=== PATIENT | female | born 1990 | race Caucasian/White ===

== ENCOUNTER → 2016-11-26 | Outpatient (CLI) | payer OTHER ==
[~2016-11-26] MED LIST: PREN-142 PO
== END ==
LOC: CARD 10:30
PROVIDERS: ATTEND Internal Medicine Interventional Cardiology
DX: I10 Essential (primary) hypertension (principal); R01.1 Cardiac murmur, unspecified

== ENCOUNTER → 2017-01-18 | Outpatient (CLI) | payer MEDICAID ==
[2017-01-18 10:49] LABS: PROTEIN/CREATININE RATIO 1.1
== END ==
LOC: LABNPT 10:25
PROVIDERS: ATTEND Obstetrics & Gynecology
DX: O14.03 Mild to moderate pre-eclampsia, third trimester (principal); Z3A.00 Weeks of gestation of pregnancy not specified
CPT/HCPCS: 82570; 84156

== ENCOUNTER → 2017-01-21 | Outpatient (CLI) | payer MEDICAID ==
[~2017-01-21] MED LIST changes: +CALC-697 PO; +DOCU100C37 PO; +IBUP-1780 PO; +METH250T PO; +OXYC-465 PO
[2017-01-21 11:37] LABS: PROTEIN/CREATININE RATIO 0.21
== END ==
LOC: LABNPT 11:16
PROVIDERS: ATTEND Obstetrics & Gynecology
DX: O28.8 Other abnormal findings on antenatal screening of mother (principal); Z3A.00 Weeks of gestation of pregnancy not specified
CPT/HCPCS: 82570; 84156

== ENCOUNTER 2017-01-24 10:00 | Outpatient (CLI) | payer MEDICAID ==
[~2017-01-24] VITALS: Ht 162.6 cm; Wt 83.0 kg
[~2017-01-24 10:00] MED LIST changes: -CALC-697 PO; -DOCU100C37 PO; -IBUP-1780 PO; -METH250T PO; -OXYC-465 PO
[2017-01-24 10:02] VITALS: BP 120/74
[2017-01-24] MEDS ORDERED: METH250T PO (10:10)
[2017-01-24] MEDS ORDERED: CALC-697 PO (10:11)
[2017-01-24 10:32] VITALS: BP 118/71
[2017-01-24] MEDS ORDERED: D5 LR IV SOLUTION 1,000 ML IV SCH (11:00)
[2017-01-24 11:02] VITALS: BP 118/65
[2017-01-24 11:32] VITALS: BP 119/67
[2017-01-24 12:15] VITALS: BP 129/81
[2017-01-24 12:40] VITALS: BP 129/81
--- NOTE | 2017-01-25 09:21 | Physician Query-Final Dx ---
ENRIQUE NEAL 01/25/17 0921: Clinic Account Progress/Dx Physician Query: Please give diagnosis Date of Service Jan 24, 2017 at 10:00 ANNIE CAMPBELL MD 02/07/17 0820: Clinic Account Progress/Dx DIAGNOSIS: Diagnosis false labor ENRIQUE NEAL Jan 25, 2017 09:21 ANNIE CAMPBELL MD Feb 07, 2017 08:20
[2017-01-28] MEDS ORDERED: OXYC-465 PO (07:43)
[2017-01-28] MEDS ORDERED: DOCU100C37 PO (07:43)
[2017-01-28] MEDS ORDERED: IBUP-1780 PO (07:43)
== END 2017-01-24 12:40 | disposition home or self-care (01) ==
LOC: WSo 10:00 → LDRP 10:01 → WSo 12:40
PROVIDERS: ATTEND Obstetrics & Gynecology
DX: O47.03 False labor before 37 completed weeks of gestation, third trimester (principal); Z3A.36 36 weeks gestation of pregnancy
CPT/HCPCS: 96360; 99214

== ENCOUNTER 2017-01-25 20:20 | Inpatient (IN) | payer MEDICAID ==
[~2017-01-25] VITALS: Ht 165.1 cm; Wt 83.9 kg
[~2017-01-25 20:20] MED LIST changes: -DOCU100C37 PO; -IBUP-1780 PO; -OXYC-465 PO
[2017-01-25 21:00] VITALS: BP 119/74
[2017-01-25 21:03] LABS: BASOPHILS % (AUTO) 0 % (0-10); EOSINOPHILS # (AUTO) 0.2 10^3/uL (0.0-0.3); EOSINOPHILS % (AUTO) 2 % (0-10); LYMPHOCYTES # (AUTO) 2.8 X 10^3 (1.0-4.0); LYMPHOCYTES % (AUTO) 20 % (12-44); MEAN CORPUSCULAR HEMOGLOBIN 31 PG (25-34); MEAN CORPUSCULAR HGB CONC 34 G/DL (32-36); MEAN CORPUSCULAR VOLUME 90 FL (80-99); MEAN PLATELET VOLUME 9.8 FL (7.4-10.4); MONOCYTES # (AUTO) 0.8 X 10^3 (0.0-1.0); MONOCYTES % (AUTO) 6 % (0-12); NEUTROPHILS # (AUTO) 10.2 X 10^3 (1.8-7.8); NEUTROPHILS % (AUTO) 72 % (42-75); PLATELET COUNT 351 10^3/uL (130-400); RED BLOOD COUNT 3.77 10^6/uL (4.35-5.85); RED CELL DISTRIBUTION WIDTH 13.9 % (10.0-14.5); WHITE BLOOD COUNT 14.1 10^3/uL (4.3-11.0)
[2017-01-25 21:56] VITALS: BP 122/59
[2017-01-25 21:59] LABS: ALANINE AMINOTRANSFERASE < 6 U/L (0-55); ALBUMIN 3.1 GM/DL (3.2-4.5); ANION GAP 10 MMOL/L (5-14); ASPARTATE AMINO TRANSFERASE 8 U/L (5-34); BILIRUBIN,TOTAL 0.2 MG/DL (0.1-1.0); BLOOD UREA NITROGEN 12 MG/DL (7-18); BUN/CREATININE RATIO 21; CALCIUM 8.9 MG/DL (8.5-10.1); CARBON DIOXIDE 19 MMOL/L (21-32); CHLORIDE 108 MMOL/L (98-107); CREATININE SERUM 0.57 MG/DL (0.60-1.30); GFR ESTIMATED > 60; GLUCOSE 85 MG/DL (70-105); LACTATE DEHYDROGENASE 147 U/L (125-220); POTASSIUM 4.1 MMOL/L (3.6-5.0); SODIUM 137 MMOL/L (135-145); URIC ACID 4.3 MG/DL (2.6-7.2)
[2017-01-25 22:58] LABS: BAND NEUTROPHILS 4 %; BASOPHILS % (MANUAL) 0 %; EOSINOPHILS % (MANUAL) 1 %; LYMPHOCYTES % (MANUAL) 24 %; NEUTROPHILS % (MANUAL) 68 %
[2017-01-25 23:53] VITALS: BP 107/51
[2017-01-26 04:20] VITALS: BP 113/63
--- NOTE | 2017-01-26 08:55 | History & Physical ---
History and Physical Date Seen by Provider: Jan 26, 2017 Time Seen by Provider: 08:49 this patient is a 26-year-old white female with an EDC of 9 and 17 putting her at 36-5/7 weeks' gestation on the date of admission. This dates she is 36-6/7 weeks' gestation. Her is complicated by pre-existing hypertension for which she was taking labetalol. Term her medications been changed to Aldomet with good effect. Her blood pressures until recently had been in the 100 teens over 60s to 70s. Her blood pressures crept up now to the 130s over high 80s. Urine protein creatinine ratio 1 week ago was at 0.21. Repeat yesterday was at greater than 0.4. She is admitted for observation last evening with plan for observation until 37 weeks gestation and thenproceed with delivery. on this date patient denies headache, she denies shortness of breath, dysuria denies nausea vomiting. She denies rupture membranes or bleeding. She does feel baby moving and feels a rare contraction. Allergies are listed above Medications are Aldomet 250 mg twice a day and vitamins Medical social and surgical histories are per the antepartum record Lab work is as follows Laboratory Tests Test 01/25/17 20:50 Range/Units White Blood Count 14.1 H 4.3-11.0 10^3/uL Red Blood Count 3.77 L 4.35-5.85 10^6/uL Hemoglobin 11.5 11.5-16.0 G/DL Hematocrit 34 L 35-52 % Mean Corpuscular Volume 90 80-99 FL Mean Corpuscular Hemoglobin 31 25-34 PG Mean Corpuscular Hemoglobin Concent 34 32-36 G/DL Red Cell Distribution Width 13.9 10.0-14.5 % Platelet Count 351 130-400 10^3/uL Mean Platelet Volume 9.8 7.4-10.4 FL Neutrophils (%) (Auto) 72 42-75 % Lymphocytes (%) (Auto) 20 12-44 % Monocytes (%) (Auto) 6 0-12 % Eosinophils (%) (Auto) 2 0-10 % Basophils (%) (Auto) 0 0-10 % Neutrophils # (Auto) 10.2 H 1.8-7.8 X 10^3 Lymphocytes # (Auto) 2.8 1.0-4.0 X 10^3 Monocytes # (Auto) 0.8 0.0-1.0 X 10^3 Eosinophils # (Auto) 0.2 0.0-0.3 10^3/uL Basophils # (Auto) 0.0 0.0-0.1 10^3/uL Neutrophils % (Manual) 68 % Lymphocytes % (Manual) 24 % Monocytes % (Manual) 3 % Eosinophils % (Manual) 1 % Basophils % (Manual) 0 % Band Neutrophils 4 % Blood Morphology Comment NORMAL Sodium Level 137 135-145 MMOL/L Potassium Level 4.1 3.6-5.0 MMOL/L Chloride Level 108 H 98-107 MMOL/L Carbon Dioxide Level 19 L 21-32 MMOL/L Anion Gap 10 5-14 MMOL/L Blood Urea Nitrogen 12 7-18 MG/DL Creatinine 0.57 L 0.60-1.30 MG/DL Estimat Glomerular Filtration Rate > 60 BUN/Creatinine Ratio 21 Glucose Level 85 70-105 MG/DL Uric Acid 4.3 2.6-7.2 MG/DL Calcium Level 8.9 8.5-10.1 MG/DL Total Bilirubin 0.2 0.1-1.0 MG/DL Aspartate Amino Transf (AST/SGOT) 8 5-34 U/L Alanine Aminotransferase (ALT/SGPT) < 6 0-55 U/L Alkaline Phosphatase 149 H 40-136 U/L Lactate Dehydrogenase 147 125-220 U/L Total Protein 6.0 L 6.4-8.2 GM/DL Albumin 3.1 L 3.2-4.5 GM/DL liver enzymes and LDH and platelets are normal hemoglobin is normal HEENT exam is normal Neck is supple no lymphadenopathy no thyromegaly Abdomen is gravid soft nontender nondistended Extremities show clubbing cyanosis. There is no Homans sign. Pelvic exam is deferred monitor shows normal heart rate pattern with rare contraction on NST Assessment and plan patient is currently 36-6/7 weeks' gestation with preeclampsia. Lantus for observation until 37 weeks is obtained and then induce labor with Pitocin. Should severe preeclampsia manifested then delivery would expedited. Anticipation is for induction of labor with the resulting vaginal delivery however plans in preparations are in would be in place for if needed. This plan has been explained to the patient with its inherent risks and potential complications. Patient understands and accepts those risks. 36-5/7 weeks' gestation with preeclampsia Allergies and Home Medications Allergies Coded Allergies: acetaminophen (Verified Allergy, Unknown, 10/10/16) hydrocodone (Verified Allergy, Unknown, 10/10/16) promethazine (Verified Allergy, Unknown, 10/10/16) Home Medications Calcium Carbonate/Vitamin D3 1 Each Tablet, 1 EACH PO DAILY, (Reported) Methyldopa 250 Mg Tablet, 250 MG PO BID, (Reported) Vit No.124/Iron/FA 1 Each Tablet, 1 EACH PO DAILY, (Reported) Clinical Quality Measures DVT/VTE Risk/Contraindication: Risk Factor Score Per Nursin RFS Level Per Nursing on Admit: 2=Moderate ANNIE CAMPBELL MD Jan 26, 2017 8:55 am
[2017-01-26] MEDS ORDERED: CATHETER FLUSH 10 ML SYR IV PRN (09:15)
[2017-01-26] MEDS: D5 LR IV SOLUTION 1,000 ML IV SCH ×2 (10:00→22:30)
[2017-01-26 10:05] VITALS: BP 120/74
[2017-01-26 13:20] VITALS: BP 106/65
[2017-01-26 17:58] VITALS: BP 122/75
[2017-01-26 20:00] VITALS: BP 129/67
[2017-01-27] VITALS (54 sets, daily range): BP systolic 104–143; BP diastolic 58–88
[2017-01-27] MEDS: D5 LR IV SOLUTION 1,000 ML IV SCH ×3 (05:50→19:36)
[2017-01-27] MEDS ORDERED: AMPICILLIN 2000 MG INJECTION (IM/IV) ONE (06:00)
[2017-01-27] MEDS ORDERED: NS (IVPB) 50 ML ONE (06:01)
[2017-01-27] MEDS ORDERED: OXYTOCIN/NORMAL SALINE 500 ML IV SCH ×2 (06:05→15:00)
[2017-01-27] MEDS ORDERED: AMPICILLIN INJECTION 2,000 MG in NS (IVPB) 50 ML IV ONE (06:15)
--- NOTE | 2017-01-27 08:13 | Progress Note-Standard ---
Standard Progress Note Progress Notes/Assess & Plan Date Seen by Provider: Jan 27, 2017 Time Seen by Provider: 08:09 Progress/Assessment & Plan patient does complain of some discomfort with contractions now. She has been started on Pitocin at approximately 6-630 a.m. or induction of labor due to preeclampsia. Blood pressures have been satisfactory on her Aldomet. Lab work was normal on admission except for the urine protein creatinine ratio that was 0.4. Patient denied headache. Denies rupture membranes or bleeding. Vital Signs Date Time Temp Pulse Resp B/P (MAP) Pulse Ox O2 Delivery O2 Flow Rate FiO2 01/27/17 06:55 97.7 61 18 116/70 01/27/17 06:40 97.7 71 18 108/61 01/27/17 06:25 66 18 108/64 01/27/17 06:14 97.8 70 18 116/60 01/27/17 06:10 70 18 116/60 01/27/17 05:50 98.1 72 20 116/68 01/27/17 00:36 78 18 121/61 01/27/17 00:00 97.8 78 18 121/61 Room Air 01/26/17 20:00 97.8 57 18 129/67 01/26/17 17:58 97.3 66 22 122/75 01/26/17 13:20 98.0 68 22 106/65 01/26/17 10:05 97.5 73 18 120/74 Vital signs are stable. Patient afebrile. Abdomen is gravid soft nontender nondistended Extremities show clubbing cyanosis. There is fairly notable pretibial pitting edema. Pelvic exam shows a cervix 2 cm dilated 70 percent effaced vertex presentation membranes were intact amniotomy was performed with release of a fairly notable amount of clear amniotic fluid. Presentation vertex at the -1 to -2 station assessment and plan 37 weeks gestation with an protein creatinine ratio over 0.4 in a patient with pre-existing hypertension currently on Aldomet. The hypertension and superimposed with eclampsia. Patient is undergoing Pitocin induction of labor now. Anticipation is for vaginal delivery. patient has been started on ampicillin for GBS prophylaxis due to a positive GBS culture. ANNIE CAMPBELL MD Jan 27, 2017 8:13 am
[2017-01-27] MEDS ORDERED: SUFENTA 0.6MCG/ML BUPIVA 0.125 100 ML ONE (08:23)
[2017-01-27] MEDS ORDERED: fentaNYL INJECTION 100 MCG/2 ML AMP ONE (09:14)
[2017-01-27] MEDS ORDERED: BUPIVACAINE 0.25% 30 ML (SENSORCAINE) VIAL ONE (09:14)
[2017-01-27] MEDS ORDERED: LACTATED RINGERS 1,000 ML IV ONE ×2 (09:42)
[2017-01-27] MEDS ORDERED: EPIDURAL (SUFENTA 0.6MCG/ML BUPIVA 0.125%) 100 ML BAG EPI PRN (09:45)
[2017-01-27] MEDS ORDERED: ONDANSETRON 4 MG/2 ML (SDV) Z0FRAN IV PRN (09:45)
[2017-01-27] MEDS ORDERED: NALOXONE 0.4 MG/ML 1 ML (NARCAN) VIAL IV PRN (09:45)
[2017-01-27] MEDS: AMPICILLIN INJECTION 1,000 MG in NS (IVPB) 50 ML IV SCH ×3 (09:51→20:19)
[2017-01-27] MEDS ORDERED: LIDOCAINE/EPI 2% 1:200,00 (XYLOCAINE) 10 ML VIAL ONE (14:39)
[2017-01-27] MEDS ORDERED: TETANUS,DIPTH,PERTUSS P/F (BOOSTRIX) 0.5 ML VIAL IM ONE (15:00)
[2017-01-27] MEDS ORDERED: BENZOCAINE/MENTHOL (DERMOPLAST) 56 ML CAN TP PRN (15:00)
[2017-01-27] MEDS ORDERED: oxyCODONE/APAP 10/325MG (PERCOCET 10) TABLET PO PRN (15:00)
[2017-01-27] MEDS: KETOROLAC 30 MG/ML VIAL IV SCH (17:38)
[2017-01-27] MEDS: DOCUSATE SODIUM 100 MG (COLACE) CAP PO SCH (19:36)
[2017-01-28] VITALS: BP 112/73
[2017-01-28] MEDS: KETOROLAC 30 MG/ML VIAL IV SCH ×2 (00:18→07:30)
--- NOTE | 2017-01-28 00:54 | OPERATIVE REPORT ---
DATE OF SERVICE: 01/27/2017 DELIVERY NOTE The patient delivered by term spontaneous vaginal delivery, a viable male with Apgars of 9 and 9 at 1 and 5 minutes. Expected weight was 5 pounds and 12 ounces. time was 1449. The delivery was accomplished over an intact perineum under epidural analgesia. The was bulb suctioned on delivery of the head and again on completion of delivery. The umbilical cord was doubly clamped, father cut the cord, the baby was passed to mom's abdomen. The placenta delivered spontaneously [place]. It was normal with a 3-vessel cord. Cord bloods were obtained including an arterial umbilical cord. Specimen for gas will give us a pH that is pending. The placenta was sent to pathology for permanent section due to her preeclampsia and polyhydramnios. The cervix, vagina, rectum and perineum were examined and found intact except for some fairly minimal periurethral and labial abrasions. Estimated blood loss was less than 150 mL. The patient tolerated delivery well and remained in the LDR for recovery. The baby remained with the mom. Job ID: [id number] DocumentID: [id number] Dictated Date: 01/27/2017 15:00:24 Desk Pens Assembler Date: 01/27/2017 18:22:41 Dictated By: ANNIE CAMPBELL MD
[2017-01-28 04:00] VITALS: BP 111/71
--- NOTE | 2017-01-28 07:41 | Progress Note-Standard ---
Standard Progress Note Progress Notes/Assess & Plan Date Seen by Provider: Jan 28, 2017 Time Seen by Provider: 07:40 Progress/Assessment & Plan patient does complain of some discomfort with contractions now. She has been started on Pitocin at approximately 6-630 a.m. or induction of labor due to preeclampsia. Blood pressures have been satisfactory on her Aldomet. Lab work was normal on admission except for the urine protein creatinine ratio that was 0.4. Patient denied headache. Denies rupture membranes or bleeding. Vital Signs Date Time Temp Pulse Resp B/P (MAP) Pulse Ox O2 Delivery O2 Flow Rate FiO2 01/27/17 06:55 97.7 61 18 116/70 01/27/17 06:40 97.7 71 18 108/61 01/27/17 06:25 66 18 108/64 01/27/17 06:14 97.8 70 18 116/60 01/27/17 06:10 70 18 116/60 01/27/17 05:50 98.1 72 20 116/68 01/27/17 00:36 78 18 121/61 01/27/17 00:00 97.8 78 18 121/61 Room Air 01/26/17 20:00 97.8 57 18 129/67 01/26/17 17:58 97.3 66 22 122/75 01/26/17 13:20 98.0 68 22 106/65 01/26/17 10:05 97.5 73 18 120/74 Vital signs are stable. Patient afebrile. Abdomen is gravid soft nontender nondistended Extremities show clubbing cyanosis. There is fairly notable pretibial pitting edema. Pelvic exam shows a cervix 2 cm dilated 70 percent effaced vertex presentation membranes were intact amniotomy was performed with release of a fairly notable amount of clear amniotic fluid. Presentation vertex at the -1 to -2 station assessment and plan 37 weeks gestation with an protein creatinine ratio over 0.4 in a patient with pre-existing hypertension currently on Aldomet. The hypertension and superimposed with eclampsia. Patient is undergoing Pitocin induction of labor now. Anticipation is for vaginal delivery. patient has been started on ampicillin for GBS prophylaxis due to a positive GBS culture. January 28, 2017 Patient is without complaint. She is ambulating, voiding, tolerating by mouth well, has good pain control. Patient denies chest pain, denies shortness of breath, denies headache, denies nausea vomiting. Patient is contemplating discharge home today. Vital Signs Date Time Temp Pulse Resp B/P (MAP) Pulse Ox O2 Delivery O2 Flow Rate FiO2 01/28/17 04:00 98.0 65 18 111/71 98 Room Air 01/28/17 00:00 98.7 63 18 112/73 96 Room Air 01/27/17 20:16 98.9 70 18 125/71 96 Room Air 01/27/17 17:30 98.5 71 18 119/72 Room Air 01/27/17 17:00 64 18 114/63 Room Air 01/27/17 16:30 70 18 121/66 Room Air 01/27/17 16:00 98.4 69 18 126/81 Room Air 01/27/17 15:41 98.0 74 18 123/82 01/27/17 15:26 99.0 71 18 131/76 01/27/17 15:11 98.5 65 18 137/70 01/27/17 14:56 98.6 75 18 122/77 01/27/17 14:40 68 18 129/63 01/27/17 14:25 67 18 116/65 01/27/17 13:55 63 18 109/66 01/27/17 13:40 65 18 118/67 01/27/17 13:25 65 18 113/69 01/27/17 13:10 64 18 111/73 01/27/17 12:55 73 18 104/66 01/27/17 12:40 62 18 116/65 01/27/17 12:25 68 18 105/58 01/27/17 12:10 97.3 66 18 120/62 100 01/27/17 11:55 57 18 115/79 100 01/27/17 11:40 64 18 114/73 96 01/27/17 11:25 52 18 118/74 98 01/27/17 10:55 97.6 01/27/17 10:55 68 18 119/74 99 01/27/17 10:40 60 18 115/67 98 01/27/17 10:25 69 18 110/74 98 01/27/17 10:10 74 18 112/73 97 01/27/17 09:57 63 18 114/62 95 01/27/17 09:55 71 18 112/73 96 01/27/17 09:51 71 18 112/73 96 01/27/17 09:46 66 18 121/69 96 01/27/17 09:43 71 18 118/76 97 01/27/17 09:40 71 18 118/68 97 01/27/17 09:39 64 18 117/61 97 01/27/17 09:38 70 18 129/61 99 01/27/17 09:35 65 18 143/88 99 01/27/17 09:30 63 18 131/69 100 01/27/17 09:25 63 18 128/65 95 01/27/17 09:10 54 18 135/86 01/27/17 08:55 97.6 64 18 122/75 01/27/17 08:40 64 18 116/76 01/27/17 08:25 61 18 117/71 01/27/17 08:10 74 18 127/82 01/27/17 07:55 61 18 121/70 vital signs are stable. Patient is afebrile. Fundus is firm below the umbilicus and nontender. Extreme show no clubbing or cyanosis. There is no Homans sign. There is minimal pretibial pitting edema that is still normal. Assessment and plan day number 1 doing well. Plan is to discharge home tomorrow although patient may be discharged home today if she requests. Final Diagnosis 37 week spontaneous vaginal delivery ANNIE CAMPBELL MD Jan 28, 2017 7:41 am
[2017-01-28] MEDS ORDERED: IBUP-1780 PO ×2 (07:43)
[2017-01-28] MEDS ORDERED: DOCU100C37 PO ×2 (07:43)
[2017-01-28] MEDS ORDERED: OXYC-465 PO ×2 (07:43)
--- NOTE | 2017-01-28 07:44 | Discharge Instructions ---
Discharge Instructions Discharge Medications New, Converted or Re-Newed RX: RX on Chart Patient Instructions Patient Instructions: as directed Return to The Hospital For: as directed Activity & Diet Discharge Diet: No Restrictions Activity as Tolerated: No Orders-Post D/C & Referrals Follow Up Appt: Call to make follow up appt. for patient in 4 weeks. Activity Per routine post vaginal delivery instructions. Diet as tolerated Patient may shower or tub bathe as desired. ANNIE CAMPBELL MD Jan 28, 2017 7:44 am
[2017-01-28] MEDS: D5 LR IV SOLUTION 1,000 ML IV SCH (08:29)
[2017-01-28] MEDS ORDERED: TETANUS,DIPTH,PERTUSS P/F (BOOSTRIX) 0.5 ML VIAL IM ONE (09:46)
[2017-01-28 09:55] VITALS: BP 111/74
[2017-01-28] MEDS: DOCUSATE SODIUM 100 MG (COLACE) CAP PO SCH ×2 (09:57→20:52)
--- NOTE | 2017-01-28 10:43 | Anesthesia-Regional Post-Op ---
Regional Patient Condition Mental Status: Alert, Oriented x3 Circulation: Same as Pre-Op Headache: Absent Sensation: Full Recovery Motor Block: Absent Post Op Complications Complications None Follow Up Care/Instructions Patient Instructions None needed. Anesthesia/Patient Condition Patient is doing well, no complaints, stable vital signs, no apparent adverse anesthesia problems. No complications reported per nursing. [place] [facility] [place] No WICHO DORSEY CRNA Jan 28, 2017 10:43
[2017-01-28 14:19] VITALS: BP 105/70
[2017-01-28] MEDS: IBUPROFEN 800 MG (MOTRIN) TAB PO SCH ×2 (14:56→20:52)
[2017-01-28 20:00] VITALS: BP 118/78
[2017-01-29] MEDS: IBUPROFEN 800 MG (MOTRIN) TAB PO SCH ×2 (02:27→09:54)
[2017-01-29 02:29] VITALS: BP 125/78
--- NOTE | 2017-01-29 07:52 | Discharge Summary ---
Discharge Summary 37 week spontaneous vaginal delivery this patient is 26-year-old white female who was seen in clinic on Saturday the 25 of January. Her blood pressure was mildly elevated however she was on Aldomet. Her urine protein creatinine ratio was 0.46. She was at 36-5/7 weeks gestation. Patient was admitted in the evening of 25 January. She was observed on 26 January and then on 27 January when she obtains 37 weeks gestation she was started on Pitocin for labor induction. She labored fairly promptly progressed adequately and subsequently had a term spontaneous vaginal delivery. The delivery was uncomplicated. The patient recovered uneventfully. On January 28 patient was without complaint. She is ambulating, voiding , tolerating fairly well, had good pain control. She had routine care through the day. Now on January 29 this is day number 2. Patient is requesting discharge home. She again is ambulating, voiding, tolerated by mouth well, and has good pain control. She denies chest pain, denies shortness of breath, denies nausea vomiting, and denies headache. It is determined she can be discharged home. Principal diagnoses this hospitalization is 37 week spontaneous vaginal delivery Secondary diagnoses are PIH with superimposed preeclampsia, 37 weeks gestation, polyhydramnios. Operation procedures include monitoring, epidural analgesia, spontaneous vaginal delivery Patient is given appropriate discharge instructions verbally and in writing and a copy those were placed in the chart. Discharge medications are Percocet, Motrin, Colace. Patient is continue her own. Vitamins Clinical Quality Measures DVT/VTE Risk/Contraindication: Risk Factor Score Per Nursin RFS Level Per Nursing on Admit: 2=Moderate ANNIE CAMPBELL MD Jan 29, 2017 7:52 am
[2017-01-29 09:54] VITALS: BP 120/73
[2017-01-29] MEDS: DOCUSATE SODIUM 100 MG (COLACE) CAP PO SCH (09:54)
--- OUTSIDE RECORDS SUMMARY | 2017-01-31 09:58 | XMS REPORT ---
Author Author JUAN LARIOS [facility] eClinicalWorks Address Unknown Phone Unavailable Care Team Providers Care Brown Sourer Name Role Phone JUAN LARIOS Unavailable Allergies, Adverse Reactions, Alerts Substance Reaction Event Type N.K.D.A. Info Not Available Non Drug Allergy Problems Problem Type Condition Code Onset Dates Condition Status Assessment Dysfunctional uterine bleeding N93.8 Active Assessment Abscess L02.91 Active Medications Medication Code System Code Instructions Start Date End Date Status Dosage Latuda [facility] [address]-63 40 MG Orally Once a day 1 tablet with food Lamictal [facility] [address]-52 100 MG Orally Twice a day 2 tablets Atenolol [facility] [address]-26 25 MG Orally Once a day 1 tablet Aspir-81 [facility] [address]-99 81 MG Orally Once a day 1 tablet Bactrim DS [facility] [address]-86 800-160 MG Orally Twice a day 1 tablet Zofran [facility] [address]-83 8 MG Orally every 8 hours x 5 days December 23, 2015 1 tablet Sprintec 28 [facility] [address]-74 0.25-35 MG-MCG Orally Take as directed December 23, 2015 1 tablet Procedures Procedure Coding System Code Date Office Visit, New Pt., Level 3 CPT-4 35624 December 23, 2015 Vital Signs Date/Time: December 23, 2015 Cardiac Monitoring Heart Rate 72 bpm Weight 169.1 lbs Height 65 in Blood Pressure Diastolic 68 mmHg Blood Pressure Systolic 120 mmHg Results No Known Results Summary Purpose eClinicalWorks Submission
--- OUTSIDE RECORDS SUMMARY | 2017-01-31 09:59 | XMS REPORT ---
Author Author JUAN LARIOS [facility] eClinicalWorks Address Unknown Phone Unavailable Care Team Providers Care Research Specialist Name Role Phone JUAN LARIOS Unavailable Allergies, Adverse Reactions, Alerts Substance Reaction Event Type N.K.D.A. Info Not Available Non Drug Allergy Problems Problem Type Condition Code Onset Dates Condition Status Assessment Well woman exam Z01.419 Active Assessment Screen for STD (sexually transmitted disease) Z11.3 Active Assessment Pinworms B80 Active Assessment Pap smear for cervical cancer screening Z12.4 Active Medications Medication Code System Code Instructions Start Date End Date Status Dosage Atenolol [facility] [address]-47 25 MG Orally Once a day 1 tablet Aspir-81 [facility] [address]-39 81 MG Orally Once a day 1 tablet Latuda [facility] [address]-52 40 MG Orally Once a day 1 tablet with food Lamictal [facility] [address]-77 100 MG Orally Twice a day 2 tablets Procedures Procedure Coding System Code Date CHYLMD TRACH, DNA, AMP PROBE CPT-4 94277 December 30, 2015 N.GONORRHOEAE, DNA, AMP PROB CPT-4 82364 December 30, 2015 SPECIMEN HANDLING CPT-4 30193 December 30, 2015 BRANHAM VAG, DNA, DIR PROBE CPT-4 00941 December 30, 2015 URINE TEST CPT-4 63051 December 30, 2015 Preventive Care Est Pt. Age 18-39 CPT-4 16646 December 30, 2015 TRICHOMONAS ASSAY W/OPTIC CPT-4 49683 December 30, 2015 Vital Signs Date/Time: December 30, 2015 Cardiac Monitoring Heart Rate 74 bpm Weight 168.1 lbs Height 65 in Blood Pressure Diastolic 68 mmHg Blood Pressure Systolic 118 mmHg Results No Known Results Summary Purpose eClinicalWorks Submission
--- OUTSIDE RECORDS SUMMARY | 2017-01-31 09:59 | XMS REPORT ---
Author Author REFUGIO ELAINE Organization eClinicalWorks Address Unknown Phone Unavailable Care Team Providers Care Global Analytics Head Name Role Phone REFUGIO ELAINE CP Unavailable Allergies, Adverse Reactions, Alerts Substance Reaction Event Type N.K.D.A. Info Not Available Non Drug Allergy Problems Problem Type Condition Code Onset Dates Condition Status Assessment Schizoaffective disorder, bipolar type F25.0 Active Assessment Encounter for immunization Z23 Active Assessment Bipolar disorder, current episode mixed, mild F31.61 Active Problem Bipolar disorder, current episode mixed, mild F31.61 Active Problem Schizoaffective disorder, bipolar type F25.0 Active Problem Essential hypertension I10 Active Assessment Screening for hyperlipidemia Z13.220 Active Assessment Screening for thyroid disorder Z13.29 Active Assessment Essential hypertension I10 Active Assessment Screening for diabetes mellitus (DM) Z13.1 Active Medications Medication Code System Code Instructions Start Date End Date Status Dosage Lamictal [facility] [address]-04 100 MG Orally Once a day 2 tablets Atenolol [facility] [address]-40 25 MG Orally Once a day 1 tablet Latuda [facility] [address]-62 80 mg Orally Once a day 1 tablet with food Aspir-81 [facility] [address]-35 81 MG Orally Once a day 1 tablet Procedures Procedure Coding System Code Date FLUARIX QUAD P-FREE 3 AND UP .50 2015 CPT-4 17384 Apr 06, 2016 SINGLE IMMUNIZATION ADMIN CPT-4 59758 Apr 06, 2016 Office Visit, Est Pt., Level 4 CPT-4 14282 Apr 06, 2016 Vital Signs Date/Time: Apr 06, 2016 Cardiac Monitoring Heart Rate 72 bpm Weight 169 lbs Height 65 in BMI 28.12 Index Blood Pressure Diastolic 60 mmHg Blood Pressure Systolic 110 mmHg Results No Known Results Immunizations Vaccine Administration Date FLUZONE QUAD 3 AND UP 0.50 2015Apr 06, 2016 Summary Purpose eClinicalWorks Submission
== END 2017-01-29 15:34 | disposition home or self-care (01) | DRG 775 ==
LOC: LDRP 20:20 → UNDOADMOB 20:25 → LDRP 20:25 → INTOOBSV 01-27 04:54 → OBSVTOIN 01-27 04:54 → LDRP 01-27 04:54 → OBSVTOIN 01-27 06:00 → LDRP 01-27 17:35 → UNDODISIN 01-29 15:34
PROVIDERS: ADMIT Obstetrics & Gynecology; ATTEND Obstetrics & Gynecology
PROC: 10E0XZZ Delivery of Products of Conception, External Approach (ICD-10-PCS; principal; 2017-01-27)
PROC: 3E033GC Introduction of Other Therapeutic Substance into Peripheral Vein, Percutaneous Approach (ICD-10-PCS; 2017-01-27)
DX: O11.4 Pre-existing hypertension with pre-eclampsia, complicating childbirth (principal); O40.3XX0 Polyhydramnios, third trimester, not applicable or unspecified; O99.824 Streptococcus B carrier state complicating childbirth; Z37.0 Single live birth; Z3A.37 37 weeks gestation of pregnancy; Z23 Encounter for immunization
CPT/HCPCS: 36415; 80053; 83615; 84550; 85007; 85027; 86850; 86900; 86901; 88307; 90715; G0378

== ENCOUNTER → 2017-01-25 | Outpatient (CLI) | payer MEDICAID ==
[~2017-01-25] MED LIST changes: +CALC-697 PO; +DOCU100C37 PO; +IBUP-1780 PO; +METH250T PO; +OXYC-465 PO
[2017-01-25 11:47] LABS: PROTEIN/CREATININE RATIO 0.46
== END ==
LOC: LABNPT 11:10
PROVIDERS: ATTEND Obstetrics & Gynecology
DX: O28.8 Other abnormal findings on antenatal screening of mother (principal); Z3A.00 Weeks of gestation of pregnancy not specified
CPT/HCPCS: 82570; 84156

== ENCOUNTER → 2017-10-07 | Outpatient (CLI) | payer MEDICAID, OTHER ==
[~2017-10-07] MED LIST changes: +DOCU100C37 PO; +IBUP-1780 PO; +OXYC-465 PO
== END ==
LOC: CARD 08:51
PROVIDERS: ATTEND Family Medicine
DX: R01.1 Cardiac murmur, unspecified (principal)
CPT/HCPCS: 93306

== ENCOUNTER → 2017-10-09 | Outpatient (CLI) | payer MEDICAID, OTHER ==
--- NOTE | 2017-10-09 13:56 | Diagnostic Imaging Report ---
PROCEDURE: US OB SINGLE FETUS <14 WKS. TECHNIQUE: Multiple real-time grayscale images were obtained over the gravid uterus in various projections. INDICATION: dating. FINDINGS: There is an intrauterine gestational sac containing a pole. [place]-rump length measurement is 4.7 cm consistent with 11 weeks 4 days gestational age. heart rate was recorded at 163 beats per minute. Gestational sac shape is unremarkable. No perigestational sac hemorrhage is seen. Maternal adnexa unremarkable. IMPRESSION: Single live IUP 11 weeks 4 days gestational age. The estimated date of confinement sonographically is 04/26/2018. Dictated by: Dictated on workstation # [id number]
== END ==
LOC: RAD 12:23
PROVIDERS: ATTEND Family Medicine
DX: O09.891 Supervision of other high risk pregnancies, first trimester (principal); Z3A.11 11 weeks gestation of pregnancy
CPT/HCPCS: 76801

== ENCOUNTER → 2017-12-31 | Outpatient (CLI) | payer OTHER, MEDICAID ==
[~2017-12-31] MED LIST changes: -METH250T PO; +METH250T5 PO
--- NOTE | 2017-12-31 13:28 | Diagnostic Imaging Report ---
INDICATION: Assess growth. FINDINGS: A meyer gestation is in cephalic position. The placenta is anterior with no abruption or previa. The measurements correlate with an age of 23 weeks 0 days reflecting normal growth from the initial exam. The cardiac and spinal structures previously suboptimally visualized today are shown to be normal. The heartrate is regular at 174 BPM. The anterior placenta is normal with no abruption or previa. IMPRESSION: The meyer gestation reveals normal growth with no abnormality at the anatomical survey and a normal volume of amniotic fluid. No abruption or previa. MEASUREMENTS: Biometrical measurements are as follows: Biparietal 5.4 cm, age 22 weeks 4 days. Head circumference 10.4 cm, age 22 weeks 4 days. Abdominal circumference 18.5 cm, age 23 weeks 2 days. Femur length 4.1 cm, age 23 weeks 3 days. Sonographic estimate age: 23 weeks 0 days. Sonographic estimated date of delivery: 04/29/18. Estimated Weight: 574 gm (+/- 84 gm). LMP percentile: 32%. heart rate: 174 beats per minute. number: 1 of 1. Dictated by: Dictated on workstation # [id number]
== END ==
LOC: RAD 11:31
PROVIDERS: ATTEND Family Medicine
DX: O09.892 Supervision of other high risk pregnancies, second trimester (principal); Z3A.23 23 weeks gestation of pregnancy
CPT/HCPCS: 76816

== ENCOUNTER 2018-04-12 23:06 | Outpatient (CLI) | payer OTHER, MEDICAID ==
[~2018-04-12] VITALS: Ht 165.1 cm; Wt 91.2 kg
[2018-04-12 23:33] LABS: BILIRUBIN,URINE NEGATIVE (NEGATIVE); CLARITY,URINE CLEAR; COLOR,URINE YELLOW; GLUCOSE, URINE (UA) NEGATIVE (NEGATIVE); KETONES,URINE NEGATIVE (NEGATIVE); LEUKOCYTE ESTERASE ,URINE 1+ (NEGATIVE); NITRITE,URINE NEGATIVE (NEGATIVE); PH,URINE 7 (5-9); PROTEIN,URINE NEGATIVE (NEGATIVE); UROBILINOGEN,URINE NORMAL (NORMAL)
[2018-04-12 23:41] LABS: BACTERIA,URINE FEW /HPF; WBC,URINE RARE /HPF
[2018-04-13] VITALS: BP 134/77
[2018-04-13] MEDS ORDERED: D5 LR IV SOLUTION 1,000 ML IV ONE (01:44)
[2018-04-13] MEDS ORDERED: morphine INJ 4 MG/ML 1 ML (VIAL/SYRINGE) IVP PRN (01:45)
[2018-04-13] MEDS ORDERED: LACTATED RINGERS 1,000 ML IV ONE (03:15)
[2018-04-13] MEDS ORDERED: D5 LR IV SOLUTION 1,000 ML IV SCH (03:15)
[2018-04-14] MEDS ORDERED: ZPR80C PO ×2 (14:47)
[2018-04-14] MEDS ORDERED: NF-LAMO200 PO ×2 (14:48)
--- NOTE | 2018-04-14 17:51 | Physician Query-Final Dx ---
JIMMY DELATORRE 04/14/18 1751: Clinic Account Progress/Dx Physician Query: Please give diagnosis Date of Service Apr 12, 2018 at 23:06 DILLON PACHECO DO 04/15/18 0843: Clinic Account Progress/Dx DIAGNOSIS: Diagnosis 37w5d w/ contractions, not in active labor JIMMY DELATORRE Apr 14, 2018 17:51 DILLON PACHECO DO Apr 15, 2018 08:43
== END 2018-04-13 02:50 | disposition home or self-care (01) ==
LOC: WSo 23:06 → LDRP 23:13 → WSo 04-13 02:50
PROVIDERS: ATTEND Family Medicine
DX: O47.1 False labor at or after 37 completed weeks of gestation (principal); Z3A.37 37 weeks gestation of pregnancy
CPT/HCPCS: 81000; 96361; 96374; 99214

== ENCOUNTER 2018-04-14 14:26 | Outpatient (CLI) | payer OTHER, MEDICAID ==
[~2018-04-14] VITALS: Ht 165.1 cm; Wt 91.2 kg
[2018-04-14 14:30] VITALS: BP 120/78
[2018-04-14] MEDS ORDERED: ZPR80C PO ×2 (14:47)
[2018-04-14] MEDS ORDERED: NF-LAMO200 PO ×2 (14:48)
[2018-04-14 14:56] LABS: BILIRUBIN,URINE NEGATIVE (NEGATIVE); CLARITY,URINE SLIGHTLY CLOUDY; COLOR,URINE YELLOW; GLUCOSE, URINE (UA) NEGATIVE (NEGATIVE); KETONES,URINE NEGATIVE (NEGATIVE); LEUKOCYTE ESTERASE ,URINE 3+ (NEGATIVE); NITRITE,URINE NEGATIVE (NEGATIVE); PH,URINE 7 (5-9); PROTEIN,URINE NEGATIVE (NEGATIVE); UROBILINOGEN,URINE NORMAL (NORMAL)
[2018-04-14 15:04] LABS: AMORPHOUS SEDIMENT,UR MOD AMOR PHOSPHATE /LPF; BACTERIA,URINE MODERATE /HPF
[2018-04-14] MEDS ORDERED: FLU QUADRIvalent (5+ YOA) 2018-2019 (AFLURIA) 0.5 ML IM ONE (16:30)
== END 2018-04-14 16:15 | disposition home or self-care (01) ==
LOC: LDRP 14:26 → WSo 14:26
PROVIDERS: ATTEND Family Medicine
DX: O47.1 False labor at or after 37 completed weeks of gestation (principal); Z3A.38 38 weeks gestation of pregnancy
CPT/HCPCS: 81000; 87077; 87088; 87186; 99213

== ENCOUNTER 2018-04-21 05:45 | Inpatient (IN) | payer MEDICAID, OTHER ==
[~2018-04-21] VITALS: Ht 165.1 cm; Wt 91.2 kg
[2018-04-21] VITALS (49 sets, daily range): BP systolic 112–155; BP diastolic 56–90
[~2018-04-21 05:45] MED LIST changes: +NF-LAMO200 PO; +ZPR80C PO
--- OUTSIDE RECORDS SUMMARY | 2018-04-21 05:58 | XMS REPORT ---
Author Author REFUGIO JOSEPH Organization [facility] Address [address] [place] [address] Care Team Providers Care Convention Manager Name Role Phone REFUGIO JOSEPH Unavailable PROBLEMS Type Condition ICD9-CM Code [id number] Code Onset Dates Condition Status SNOMED Code Problem Acute cystitis with hematuria N30.01 Active 22939341 Problem Positive urine test Z32.01 Active 530654191 Problem Schizoaffective disorder, bipolar type F25.0 Active 87942409 Problem Bipolar disorder, current episode mixed, mild F31.61 Active 105535704 Problem Nausea alone R11.0 Active 196340245 Problem Essential hypertension I10 Active 25453403 ALLERGIES Substance Reaction Event Type Date Status N.K.D.A. Unknown Non Drug Allergy May, Unknown SOCIAL HISTORY No smoking Hx information available PLAN OF CARE Activity Details Follow Up Saturday Reason:BP check VITAL SIGNS Height 65 in 2016-06-08 Weight 181.4 lbs 2016-06-08 Temperature 97.8 degrees Fahrenheit 2016-06-08 Respiratory Rate 16 2016-06-08 BMI 30.18 kg/m2 2016-06-08 Blood pressure systolic 122 mmHg 2016-06-08 Blood pressure diastolic 68 mmHg 2016-06-08 MEDICATIONS Medication Instructions Dosage Frequency Start Date End Date Duration Status Macrobid 100 MG Orally every 12 hrs 1 capsule with food 12h May, Jun, 7 day(s) Active Labetalol HCl 100 MG Orally once per day / tab May, 0 days Active RESULTS Name Result Date Reference Range CULTURE, URINE 2016-06-08 Urine Culture, Routine Preliminary report Result 1 Escherichia coli A1C (IN HOUSE) 2016-06-08 A1C IN HOUSE 5.6 4.3 - 5.6 % Previous A1c Lot [id number] Exp date 03/2018 GLUCOSE FINGERSTICK (IN HOUSE) 2016-06-08 GLU FINGERSTICK 134 PC Lot # [id number] Exp date 06/25/2016 TEST, URINE (IN HOUSE) 2016-06-08 RESULTS positive Lot # [id number] Control + Exp date 01/07/18 UA LONG DIP (IN HOUSE) 2016-06-08 Lot # [id number] Exp date 04/2017 Clarity clear Color yellow Odor no GLU neg ALONSO neg KET neg SG 1.025 BLO trace-lysed pH 5.5 Protein neg URO 0.2 NIT positive GIANNA 1+ Lot # Exp date HCG, QUANTITATIVE 2016-06-08 hCG,Beta Subunit,Qnt,Serum 182 CULTURE, URINE 2016-06-08 Urine Culture, Routine Final report Result 1 Escherichia coli Antimicrobial Susceptibility PROCEDURES Procedure Date Ordered Related Diagnosis Body Site CHORIONIC GONADOTROPIN TEST Jun 08, 2016 URINE TEST Jun 08, 2016 Office Visit, Est Pt., Level 3 Jun 08, 2016 VENIPUNCT, ROUTINE* Jun 08, 2016 URINALYSIS, AUTO, W/O SCOPE Jun 08, 2016 URINE CULTURE/COLONY COUNT Jun 08, 2016 GLYCATED HEMOGLOBIN TEST Jun 08, 2016 GLUCOSE BLOOD TEST Jun 08, 2016 IMMUNIZATIONS No Known Immunizations
--- OUTSIDE RECORDS SUMMARY | 2018-04-21 05:58 | XMS REPORT ---
Author Author REFUGIO JOSEPH Organization [facility] Address [address] [place] [address] Care Team Providers Care Academic Services Coordinator Name Role Phone REFUGIO JOSEPH Unavailable PROBLEMS Type Condition ICD9-CM Code [id number] Code Onset Dates Condition Status SNOMED Code Problem Positive urine test Z32.01 Active 573410355 Problem Nausea alone R11.0 Active 378243890 Problem Bipolar disorder, current episode mixed, mild F31.61 Active 159437857 Problem Schizoaffective disorder, bipolar type F25.0 Active 91087461 Problem Acute cystitis with hematuria N30.01 Active 38796983 Problem Essential hypertension I10 Active 06966661 ALLERGIES Unknown Allergies SOCIAL HISTORY No smoking Hx information available PLAN OF CARE VITAL SIGNS Height 65 in 2016-06-11 Blood pressure systolic 122 mmHg 2016-06-11 Blood pressure diastolic 70 mmHg 2016-06-11 MEDICATIONS Unknown Medications RESULTS No Results PROCEDURES No Known procedures IMMUNIZATIONS No Known Immunizations
[2018-04-21] MEDS ORDERED: MINERAL OIL CONCENTRATE 99.9% 15 ML UDC TOP PRN (06:00)
[2018-04-21] MEDS ORDERED: D5 LR IV SOLUTION 1,000 ML IV ONE (06:02)
[2018-04-21] MEDS: D5 LR IV SOLUTION 1,000 ML IV SCH ×2 (06:15→14:12)
[2018-04-21] MEDS: CATHETER FLUSH 10 ML SYR IV SCH ×2 (06:20→16:19)
[2018-04-21 06:30] LABS: BASOPHILS % (AUTO) 0 % (0-10); EOSINOPHILS # (AUTO) 0.2 10^3/uL (0.0-0.3); EOSINOPHILS % (AUTO) 2 % (0-10); HEMATOCRIT 31 % (35-52); HEMOGLOBIN 10.4 G/DL (11.5-16.0); LYMPHOCYTES # (AUTO) 2.8 X 10^3 (1.0-4.0); LYMPHOCYTES % (AUTO) 22 % (12-44); MEAN CORPUSCULAR HEMOGLOBIN 30 PG (25-34); MEAN CORPUSCULAR HGB CONC 33 G/DL (32-36); MEAN CORPUSCULAR VOLUME 90 FL (80-99); MEAN PLATELET VOLUME 9.4 FL (7.4-10.4); MONOCYTES # (AUTO) 0.7 X 10^3 (0.0-1.0); MONOCYTES % (AUTO) 6 % (0-12); NEUTROPHILS # (AUTO) 9.1 X 10^3 (1.8-7.8); NEUTROPHILS % (AUTO) 71 % (42-75); PLATELET COUNT 368 10^3/uL (130-400); RED BLOOD COUNT 3.49 10^6/uL (4.35-5.85); RED CELL DISTRIBUTION WIDTH 14.2 % (10.0-14.5); WHITE BLOOD COUNT 12.8 10^3/uL (4.3-11.0)
[2018-04-21] MEDS ORDERED: FLU QUADRIvalent (5+ YOA) 2018-2019 (AFLURIA) 0.5 ML IM ONE (07:30)
[2018-04-21] MEDS ORDERED: OXYTOCIN/NORMAL SALINE 500 ML IV ONE (07:43)
[2018-04-21] MEDS ORDERED: OXYTOCIN/NORMAL SALINE 500 ML IV SCH ×2 (07:53→17:55)
--- NOTE | 2018-04-21 13:22 | History & Physical-OB ---
OB - Chief Complaint & HPI Date/Time Date of Admission: Date of Admission: Apr 21, 2018 at 5:55 am Date seen by a Provider: Apr 21, 2018 Time Seen by a Provider: 09:25 Chief Complaint/History OB-Reason for Admission/Chief: Induction of Labor Hx : 3 Hx Para: 2 Expected Date of Delivery: Apr 28, 2018 Gestational Age in Weeks: 39 Gestational Age in Days: 0 Indication for induction: other (elective) History of Labs O+, antibody neg. RI. GC/chlamydia neg. HIV/HepB/RPR NR. Glucola normal. GBS neg. Allergies and Home Medications Allergies Coded Allergies: hydrocodone (Verified Allergy, Unknown, 10/10/16) promethazine (Verified Allergy, Unknown, 10/10/16) Home Medications Lamotrigine 200 Mg Tab, 200 MG PO DAILY, (Reported) Vit No.124/Iron/FA 1 Each Tablet, 1 EACH PO DAILY, (Reported) Ziprasidone 80 Mg Cap, 80 MG PO DAILY, (Reported) Patient Home Medication List Home Medication List Reviewed: Yes OB - History Hx of Present Care: Yes Ultrasounds: Normal mid trimester US Obstetrical Complications: None Medical Complications: Psychiatric (Bipolar disorder on lamictal and Geodon throughout ) Information Induced Hypertension: No Maternal Gestational Diabetes: No Hemorrhage: No Obstetrical History Hx : 3 Hx Para: 2 Hx # Term Pregnancies: 2 Hx # Pregnancies: 0 Number of Living Children: 2 Hx Termination: No Hx Multiple Gestation: No Hx Ectopic : No Hx Stillbirth: No Hx Complication: Yes Hx Induced Hypertens: Yes (preeclampsia second ) Hx Maternal Gestational Diabet: Yes (first ) Hx Hemorrhage: No Delivery History Hx Dystocia: No Hx Forceps Assisted Delivery: No Hx Vacuum Extraction Assisted: No Hx Placenta Abnormality: No Hx Distress: No Hx Large For Gestational Age I: No Hx Small for Gestational Age I: No Hx Section: No Hx Vaginal Delivery Post C-Sec: No Hx Blood Disorders: No Adverse Rxn to Tranfusion: No Patient Past Medical History PMHx: Bipolar disorder Preeclampsia Gestational diabetes PsurgHx: Tympanostomy tubes Social History/Family History HIV/AIDS: No Recent Infectious Disease Expo: No Alcohol Use: Denies Use Recreational Drug Use: No Smoking Cessation: Current every day smoker Immunizations Hepatitis A: Yes Hepatitis B: Yes Rubella: immune RPR/VDRL: Negative GBS Status: Negative HBsAG: Negative OB - Admission Exam Physical Exam Vitals: Vital Signs 04/21/18 04/21/18 07:50 12:35 Temp 96.5 Pulse 75 Resp 18 B/P (MAP) 129/82 (98) O2 Delivery Room Air HEENT: NCAT Cervical Dilatation: 4cm Effacement: 50% Station: -1 Membranes: Ruptured (AROM at time of exam at 1300) Amniotic Fluid: Clear Accelerations: Accelerations Present Decelerations: No Decelerations Short Term Variability: Present Bilingual Trainer Variability: Average (6-25) Garcia Scoring Tool (Modified) Dilation (cm): 3-4cm (2) Effacement (%): 51-79% (2) Descent/Station: -2 (1) Cervix Consistency: Medium(1) Cervix Position: Posterior (0) Add 1 point for: Each previous vaginal delivery (1) (2) Garcia Score: 8 Labs Laboratory Tests Test 04/21/18 06:15 Range/Units White Blood Count 12.8 H 4.3-11.0 10^3/uL Red Blood Count 3.49 L 4.35-5.85 10^6/uL Hemoglobin 10.4 L 11.5-16.0 G/DL Hematocrit 31 L 35-52 % Mean Corpuscular Volume 90 80-99 FL Mean Corpuscular Hemoglobin 30 25-34 PG Mean Corpuscular Hemoglobin Concent 33 32-36 G/DL Red Cell Distribution Width 14.2 10.0-14.5 % Platelet Count 368 130-400 10^3/uL Mean Platelet Volume 9.4 7.4-10.4 FL Neutrophils (%) (Auto) 71 42-75 % Lymphocytes (%) (Auto) 22 12-44 % Monocytes (%) (Auto) 6 0-12 % Eosinophils (%) (Auto) 2 0-10 % Basophils (%) (Auto) 0 0-10 % Neutrophils # (Auto) 9.1 H 1.8-7.8 X 10^3 Lymphocytes # (Auto) 2.8 1.0-4.0 X 10^3 Monocytes # (Auto) 0.7 0.0-1.0 X 10^3 Eosinophils # (Auto) 0.2 0.0-0.3 10^3/uL Basophils # (Auto) 0.0 0.0-0.1 10^3/uL OB - Assessment/Plan/Diagnosis Assessment Assessment: induction of labor Admission Dx Elective induction of labor at 39 weeks Admission Status: Inpatient Order (span 2 midnights) Reason for Inpatient Admission: Induction, labor and delivery and course Plan Plan: Induction Induction Method: per Pitocin Protocol Other Plan AROM done about 1300 with clear fluid. LUZ MALDONADO MD Apr 21, 2018 1:21 pm
[2018-04-21] MEDS ORDERED: fentaNYL INJECTION 100 MCG/2 ML AMP ONE (13:34)
[2018-04-21] MEDS ORDERED: fentaNYL INJECTION 100 MCG/2 ML AMP IVP ONE (13:45)
[2018-04-21] MEDS ORDERED: LACTATED RINGERS 1,000 ML IV ONE ×2 (14:03→14:50)
[2018-04-21] MEDS ORDERED: SUFENTA 0.6MCG/ML BUPIVA 0.125 100 ML ONE (14:28)
[2018-04-21] MEDS ORDERED: EPIDURAL (SUFENTA 0.6MCG/ML BUPIVA 0.125%) 100 ML BAG EPI SCH (15:00)
[2018-04-21] MEDS ORDERED: NALOXONE 0.4 MG/ML 1 ML (NARCAN) VIAL IV PRN ×2 (15:00)
[2018-04-21] MEDS ORDERED: ONDANSETRON 4 MG/2 ML (SDV) Z0FRAN IV PRN (15:00)
[2018-04-21] MEDS ORDERED: METOCLOPRAMIDE INJ 10 MG/2 ML (REGLAN) IV PRN (15:00)
[2018-04-21] MEDS ORDERED: diphenhydrAMINE 50 MG/ML INJ (BENADRYL) IV PRN (15:00)
--- NOTE | 2018-04-21 17:17 | OB Labor & Delivery Record ---
Vag Delivery Note Vag Delivery Note Date of Delivery: 04/21/18 Preoperative Diagnosis: Mackenzie Reddy is a (28 /Para 3 / 2, Gestational Age (wks)39with 0d Postoperative Diagnosis: Same Surgeon: LUZ MALDONADO Anesthesia: Epidural Delivery Type: Spontaneous vaginal delivery Findings: Viable female , apgars 8/9, weight 6#9 Lacerations: periurethral abrasions, hemostatic Intact placenta with 3 vessel cord. No nuchal cord, body cord or shoulder dystocia Estimated Blood Loss: 250 ml Complications: None Condition: Stable Description of Procedure: The patient is a G3 now P3 who presented for elective IOL. She was admitted and informed consent was obtained. Her labor course was unremarkable. She progressed to complete dilatation and began to push. She was then set up for delivery. The infant's head was delivered atraumatically in the DAVIN position. The shoulders and remainder of the 's body were then delivered without difficulty. Upon delivery, the head was held below the level of the perineum and the mouth and nares were bulb suctioned. The cord was doubly clamped and cut and the was handed off to the pediatric staff. An intact placenta with 3-vessel cord delivered via Hao and there was found to be minimal bleeding.~ Vigorous fundal massage was performed and the fundus was found to be firm. IV oxytocin was given. Examination of the vagina and perineum revealed periurethral abrasions that were hemostatic. Following the delivery, sponge, instrument and needle counts were correct. Mom and baby were both in stable condition in the labor suite. Vitals - Labs Vital Signs - I&O Vital Signs 04/21/18 04/21/18 12:50 16:00 Temp 96.4 Pulse 63 Resp 18 B/P (MAP) 132/75 (94) Pulse Ox 96 O2 Delivery Room Air Labs Laboratory Tests 04/21/18 06:15: White Blood Count 12.8H, Red Blood Count 3.49L, Hemoglobin 10.4L, Hematocrit 31L , Mean Corpuscular Volume 90, Mean Corpuscular Hemoglobin 30, Mean Corpuscular Hemoglobin Concent 33, Red Cell Distribution Width 14.2, Platelet Count 368, Mean Platelet Volume 9.4, Neutrophils (%) (Auto) 71, Lymphocytes (%) (Auto) 22, Monocytes (%) (Auto) 6, Eosinophils (%) (Auto) 2, Basophils (%) (Auto) 0, Neutrophils # (Auto) 9.1H, Lymphocytes # (Auto) 2.8, Monocytes # (Auto) 0.7, Eosinophils # (Auto) 0.2, Basophils # (Auto) 0.0 LUZ MALDONADO MD Apr 21, 2018 5:17 pm
[2018-04-21] MEDS ORDERED: BENZOCAINE/MENTHOL (DERMOPLAST) 56 ML CAN TP PRN (18:00)
[2018-04-21] MEDS ORDERED: WITCH HAZEL(TUCKS) 40 EA JAR TOP PRN (18:00)
[2018-04-21] MEDS: IBUPROFEN 600 MG (MOTRIN) TAB PO SCH (19:47)
[2018-04-22 00:08] VITALS: BP 119/78
[2018-04-22] MEDS: IBUPROFEN 600 MG (MOTRIN) TAB PO SCH ×3 (02:09→15:54)
[2018-04-22] MEDS: CATHETER FLUSH 10 ML SYR IV SCH ×2 (02:09→06:26)
[2018-04-22 05:21] VITALS: BP 115/71
[2018-04-22 05:49] LABS: BASOPHILS % (AUTO) 0 % (0-10); EOSINOPHILS # (AUTO) 0.2 10^3/uL (0.0-0.3); EOSINOPHILS % (AUTO) 2 % (0-10); HEMATOCRIT 27 % (35-52); HEMOGLOBIN 9.1 G/DL (11.5-16.0); LYMPHOCYTES # (AUTO) 3.1 X 10^3 (1.0-4.0); LYMPHOCYTES % (AUTO) 26 % (12-44); MEAN CORPUSCULAR HEMOGLOBIN 31 PG (25-34); MEAN CORPUSCULAR HGB CONC 33 G/DL (32-36); MEAN CORPUSCULAR VOLUME 92 FL (80-99); MEAN PLATELET VOLUME 9.7 FL (7.4-10.4); MONOCYTES # (AUTO) 0.8 X 10^3 (0.0-1.0); MONOCYTES % (AUTO) 7 % (0-12); NEUTROPHILS # (AUTO) 8.1 X 10^3 (1.8-7.8); NEUTROPHILS % (AUTO) 66 % (42-75); PLATELET COUNT 298 10^3/uL (130-400); RED BLOOD COUNT 2.98 10^6/uL (4.35-5.85); RED CELL DISTRIBUTION WIDTH 13.8 % (10.0-14.5); WHITE BLOOD COUNT 12.2 10^3/uL (4.3-11.0)
[2018-04-22] MEDS ORDERED: PRENATAL VITAMIN 1 EA TAB PO SCH ×2 (07:00)
[2018-04-22] MEDS ORDERED: FERR325T18 PO (08:41)
[2018-04-22] MEDS ORDERED: IBUP-844 PO (08:41)
--- NOTE | 2018-04-22 08:43 | Discharge Instructions ---
Discharge Inst-Women's Serv Depart Medications New, Converted or Re-Newed RX: Transmitted to Pharmacy New Medications: Ferrous Sulfate (Ferrous Sulfate) 325 Mg Tablet 325 MG PO DAILY, #30 TAB 0 Refills Ibuprofen (Ibu) 600 Mg Tablet 600 MG PO Q6H PRN for PAIN-MILD TO MODERATE, #60 TAB 0 Refills Continued Medications: Lamotrigine (Lamictal) 200 Mg Tab 200 MG PO DAILY, TAB Vit No.124/Iron/FA ( Vitamin Tablet) 1 Each Tablet 1 EACH PO DAILY, TAB Ziprasidone (Geodon) 80 Mg Cap 80 MG PO DAILY, CAP Follow Up/Instructions Goal/Follow Up: Follow up at [facility] in 6 weeks for visit. Activity Activity: Activity as Tolerated (avoid strenuous activity x 6 weeks) NO SMOKING: NO SMOKING Nothing Inside Vagina: No Douching, No [place], No Tampons Diet Discharge Diet: Regular Diet Symptoms to Report to : Bleeding Excessive, Fever Over 101 Degrees F, Pain/ Pressure in Chest, Vaginal Bleeding Increase, Cramps in Feet or Legs, Vaginal Discharge Foul, Dizziness/Fainting, Shortness of Breath For Any Problems or Questions: Contact Your Physician LUZ MALDONADO MD Apr 22, 2018 8:43 am
[2018-04-22] MEDS ORDERED: ZIPRASIDONE 80 MG (GEODON) CAP PO SCH (09:00)
[2018-04-22 09:32] VITALS: BP 119/71
--- NOTE | 2018-04-22 10:31 | Anesthesia-Regional Post-Op ---
Regional Patient Condition Mental Status: Alert, Oriented x3 Circulation: Same as Pre-Op Headache: Absent Sensation: Full Recovery Motor Block: Absent Post Op Complications Complications None Follow Up Care/Instructions Patient Instructions None needed. Anesthesia/Patient Condition Patient is doing well, no complaints, stable vital signs, no apparent adverse anesthesia problems. No complications reported per nursing. MALACHI FORTE CRNA Apr 22, 2018 10:31
--- NOTE | 2018-04-22 14:03 | Discharge Summary ---
Diagnosis/Chief Complaint Date of Admission Apr 21, 2018 at 5:55 am Date of Discharge Apr 22, 2018 Admission Diagnosis Admission Diagnosis Elective induction of labor at 39 weeks Bipolar disorder Discharge Diagnosis Elective induction of labor at 39 weeks- uncomplicated labor and delivery course. Blood type O+, RI. No complications. Bipolar disorder- continued on lamictal and geodon. Chief Complaint/HPI Chief Complaint/HPI 28 yo G3 now P3 presented to IOL at 39 weeks. Discharge Summary-Simple/Stand Procedures Spontaneous vaginal delivery Discharge Physical Examination Allergies: Coded Allergies: hydrocodone (Verified Allergy, Unknown, 10/10/16) promethazine (Verified Allergy, Unknown, 10/10/16) Vitals & I&Os Vital Sign - Last 12Hours Date Time Temp Pulse Resp B/P (MAP) Pulse Ox O2 Delivery O2 Flow Rate FiO2 04/22/18 09:32 98.0 81 18 119/71 (87) 98 Room Air Intake and Output 04/22/18 00:00 Intake Total 2000 ml Balance 2000 ml General Appearance: Alert, No Acute Distress Respiratory: Clear to Auscultation, Normal Air Movement Cardiovascular: Regular Rate, Other (3/6 systolic murmur) Abdominal: Normal Bowel Sounds, Other (fundus firm below umbilicus) Extremities: No Edema Neuro: Normal Speech Psych/Mental Status: Mental Status NL Hospital Course See final discharge diagnosis. Labs Laboratory Tests Test 04/21/18 06:15 04/22/18 05:15 Range/Units White Blood Count 12.8 H 12.2 H 4.3-11.0 10^3/uL Red Blood Count 3.49 L 2.98 L 4.35-5.85 10^6/uL Hemoglobin 10.4 L 9.1 L 11.5-16.0 G/DL Hematocrit 31 L 27 L 35-52 % Mean Corpuscular Volume 90 92 80-99 FL Mean Corpuscular Hemoglobin 30 31 25-34 PG Mean Corpuscular Hemoglobin Concent 33 33 32-36 G/DL Red Cell Distribution Width 14.2 13.8 10.0-14.5 % Platelet Count 368 298 130-400 10^3/uL Mean Platelet Volume 9.4 9.7 7.4-10.4 FL Neutrophils (%) (Auto) 71 66 42-75 % Lymphocytes (%) (Auto) 22 26 12-44 % Monocytes (%) (Auto) 6 7 0-12 % Eosinophils (%) (Auto) 2 2 0-10 % Basophils (%) (Auto) 0 0 0-10 % Neutrophils # (Auto) 9.1 H 8.1 H 1.8-7.8 X 10^3 Lymphocytes # (Auto) 2.8 3.1 1.0-4.0 X 10^3 Monocytes # (Auto) 0.7 0.8 0.0-1.0 X 10^3 Eosinophils # (Auto) 0.2 0.2 0.0-0.3 10^3/uL Basophils # (Auto) 0.0 0.0 0.0-0.1 10^3/uL Discharge Instructions to patient/family Please see electronic discharge instructions given to patient. Discharge Medications Reviewed and agree with Discharge Medication list on patient's Discharge Instruction sheet Clinical Quality Measures DVT/VTE Risk/Contraindication: Risk Factor Score Per Nursin RFS Level Per Nursing on Admit: 1=Low/No VTE PPX Copy Copies To 1: LUZ MALDONADO MD, BETHANY N MD Apr 22, 2018 2:03 pm
[2018-04-22 15:53] VITALS: BP 130/81
== END 2018-04-22 19:20 | disposition home or self-care (01) | DRG 807 ==
LOC: LDRP 05:55
PROVIDERS: ADMIT Family Medicine; ATTEND Family Medicine
PROC: 10E0XZZ Delivery of Products of Conception, External Approach (ICD-10-PCS; principal; 2018-04-21)
PROC: 3E033VJ Introduction of Other Hormone into Peripheral Vein, Percutaneous Approach (ICD-10-PCS; 2018-04-21)
DX: O99.344 Other mental disorders complicating childbirth (principal); F31.9 Bipolar disorder, unspecified; O71.82 Other specified trauma to perineum and vulva; Z37.0 Single live birth; Z3A.39 39 weeks gestation of pregnancy
CPT/HCPCS: 36415; 85025; 86850; 86900; 86901